=== PATIENT | female | born 1960 | race Hispanic/Latino ===

== ENCOUNTER 2017-04-06 05:24 | Emergency (ER) | payer OTHER ==
[2017-04-06 06:13] LABS: Basophils % (Auto) 0.3 % (0.0-1.8); Eosinophils % (Auto) 2.2 % (0.0-4.3); Hematocrit 38.7 % (30.3-42.9); Hemoglobin 12.6 gm/dl (10.1-14.3); Mean Corpuscular HGB Conc 33 % (30-34); Mean Corpuscular Hemoglobin 29 pg (28-32); Mean Corpuscular Volume 90 fl (79-97); Red Blood Count 4.31 M/mm3 (3.65-5.03); Red Cell Distribution Width 17.7 % (13.2-15.2); White Blood Count 5.4 K/mm3 (4.5-11.0)
[2017-04-06 06:14] LABS: Platelet Count 111 K/mm3 (140-440)
[2017-04-06 06:37] LABS: Alanine Aminotransferase 28 units/L (7-56); Albumin 3.8 g/dL (3.9-5); Albumin/Globulin Ratio 2.4 %; Alkaline Phosphatase 112 units/L (35-129); Anion Gap 17 mmol/L; BUN/Creatinine Ratio 24; Blood Urea Nitrogen 12 mg/dL (7-17); Calcium 8.6 mg/dL (8.4-10.2); Carbon Dioxide 19 mmol/L (22-30); Chloride 115.1 mmol/L (98-107); Glucose 85 mg/dL (65-100); Lipase 22 units/L (13-60); Potassium 4.8 mmol/L (3.6-5.0); Sodium 146 mmol/L (137-145); Total Protein 5.4 g/dL (6.3-8.2)
[2017-04-06 07:54] LABS: Bilirubin,Urine NEG (Negative); Blood,Urine MOD (Negative); Ketones,Urine NEG (Negative); Leukocyte Esterase,Urine TR (Negative); Mucus,Urine FEW /HPF; Nitrite,Urine NEG (Negative); Protein,Urine <15 mg/dL mg/dL (Negative); Urobilinogen,Urine < 2.0 mg/dL (<2.0)
--- NOTE | 2017-04-06 09:37 | Emergency Department Report ---
ED General Adult HPI - General Chief complaint: Abdominal Pain Stated complaint: ABD PAIN; EDEMA BILATERAL FEET Time Seen by Provider: 04/06/17 08:56 Source: patient, RN notes reviewed Mode of arrival: Ambulatory Limitations: No Limitations - History of Present Illness Initial comments: This is a 57-year-old female who is previously unknown to this provider. Patient has a past medical history of emphysema/COPD, gastric bypass, pacemaker placement, hysterectomy, abdominal surgery/hernia repair with mesh. Does not have a local primary care doctor. The patient presents to the ER with multiple complaints. Her first complaint is epigastric and bilateral upper quadrant abdominal pain. This has been present for the past few weeks. It is intermittent, does not radiate distal, increases with palpation and decreases with rest. The patient also complains of shortness of breath, wheezing and coughing. She reports this is consistent with prior episodes of COPD. There is no history of DVT, no recent trips greater than 4 hours, and no recent hospital admissions. The patient also complains of bilateral lower extremity swelling. The swelling is intermittent over the past 2 months. It worsens when she stands up for prolonged period of time, and gets better when she sits down. She reports that the swelling intimately causes pain and redness in her lower extremities. The swelling today is not especially different than when compared to prior over the past 2 months. There is no chest pain. The patient denies irritative obstructive urinary symptoms, and she also describes diarrhea, which she describes as nonbloody, nonbilious, reports recent amoxicillin use for "dental infection." Hasn't had diarrhea since being here in the ER. -: Gradual Location: abdomen, left, right, lower extremity Quality: aching Consistency: intermittent Improves with: rest Associated Symptoms: malaise, shortness of breath. denies: chest pain - Related Data Previous Rx's Medication Instructions Recorded Last Taken Type Albuterol Sulfate [Proair 90 mcg IH Q4HR PRN #2 aer.pow.ba 04/06/17 Unknown Rx Respiclick] Dicyclomine [Bentyl] 10 mg PO QID PRN #20 capsule 04/06/17 Unknown Rx Famotidine [Pepcid] 20 mg PO QDAY #30 tablet 04/06/17 Unknown Rx Ipratropium [place] [Atrovent Hfa] 12.9 gm IH Q4HR #2 hfa.aer.ad 04/06/17 Unknown Rx predniSONE [Deltasone] 40 mg PO QDAY #8 tab 04/06/17 Unknown Rx Allergies Allergy/AdvReac Type Severity Reaction Status Date / Time No Known Allergies Allergy Unverified 04/06/17 05:34 ED Review of Systems ROS: Stated complaint: ABD PAIN; EDEMA BILATERAL FEET Other details as noted in HPI Constitutional: malaise. denies: fever Eyes: denies: vision change ENT: denies: epistaxis Respiratory: cough, shortness of breath, wheezing Cardiovascular: denies: chest pain Gastrointestinal: abdominal pain, diarrhea Musculoskeletal: back pain, arthralgia, myalgia Skin: denies: lesions Neurological: weakness Psychiatric: as per HPI ED Past Medical Hx - Past Medical History Previous Medical History?: No - Surgical History Past Surgical History?: Yes Additional Surgical History: gastric bypass, hip replacement, hysterectomy, hernia repair, - Social History Smoking Status: Current Every Day Smoker - Medications Home Medications: Home Medications Medication Instructions Recorded Confirmed Last Taken Type Albuterol Sulfate [Proair 90 mcg IH Q4HR PRN #2 aer.pow.ba 04/06/17 Unknown Rx Respiclick] Dicyclomine [Bentyl] 10 mg PO QID PRN #20 capsule 04/06/17 Unknown Rx Famotidine [Pepcid] 20 mg PO QDAY #30 tablet 04/06/17 Unknown Rx Ipratropium [place] [Atrovent Hfa] 12.9 gm IH Q4HR #2 hfa.aer.ad 04/06/17 Unknown Rx predniSONE [Deltasone] 40 mg PO QDAY #8 tab 04/06/17 Unknown Rx ED Physical Exam - General Limitations: No Limitations General appearance: alert, in no apparent distress - Head Head exam: Present: atraumatic, normocephalic - Eye Eye exam: Present: normal appearance, EOMI. Absent: nystagmus - ENT ENT exam: Present: normal exam, normal orophraynx, mucous membranes moist, normal external ear exam - Neck Neck exam: Present: normal inspection, full ROM. Absent: tenderness, meningismus - Respiratory Respiratory exam: Present: normal lung sounds bilaterally. Absent: respiratory distress, wheezes, rales, rhonchi, stridor, chest wall tenderness, accessory muscle use, decreased breath sounds, prolonged expiratory - Cardiovascular Cardiovascular Exam: Present: normal rhythm, bradycardia, normal heart sounds. Absent: tachycardia, irregular rhythm, systolic murmur, diastolic murmur, rubs, gallop - GI/Abdominal GI/Abdominal exam: Present: soft, tenderness, normal bowel sounds, other (there is epigastric, bilateral upper quadrant tenderness, there is no right lower quadrant tenderness, mild left lower quadrant tenderness, patient reports having hernia mesh there previously.). Absent: distended, guarding, rebound, rigid, pulsatile mass - Extremities Exam Extremities exam: Present: normal inspection, normal capillary refill, pedal edema, other (there is no palpable cord, there is 1+ pitting edema in the lower extremities.). Absent: calf tenderness - Back Exam Back exam: Present: normal inspection, full ROM. Absent: CVA tenderness (L), muscle spasm, paraspinal tenderness, vertebral tenderness - Neurological Exam Neurological exam: Present: alert, oriented X3, normal gait, other (Extraocular movements intact. Tongue midline. No facial droop. Facial sensation intact to light touch in the V1, V2, V3 distribution bilaterally. 5 and 5 strength in 4 extremities.. Sensation is intact to light touch in 4 extremities.). Absent : motor sensory deficit - Psychiatric Psychiatric exam: Present: normal affect, normal mood - Skin Skin exam: Present: warm, dry, intact, normal color. Absent: rash ED Course Vital Signs 04/06/17 04/06/17 04/06/17 05:28 10:54 12:21 Temperature 98.8 F 97.9 F Pulse Rate 53 L 54 L Pulse Rate [ 44 L Anterior Bilateral Throughout] Respiratory 17 20 Rate Respiratory 18 Rate [Anterior Bilateral Throughout] Blood Pressure 138/66 Blood Pressure 110/60 [Left] O2 Sat by Pulse 96 96 Oximetry 04/06/17 12:23 Temperature Pulse Rate Pulse Rate [ Anterior Bilateral Throughout] Respiratory 20 Rate Respiratory Rate [Anterior Bilateral Throughout] Blood Pressure Blood Pressure [Left] O2 Sat by Pulse 96 Oximetry - Reevaluation(s) Reevaluation #1: 04/06/17 10:01 Differential diagnosis: COPD, pneumonia, hiatal hernia, complication of gastric bypass, urinary tract infection, antibiotic associated diarrhea, DVT, pulmonary embolus, CHF, dependent edema, venous insufficiency Assessment and plan: 57-year-old female with a number of subacute and chronic complaints. She is afebrile, with reassuring vital signs, has a GCS of 15, with an NIH score of 0, is clinically sober, low risk by well's criteria, no pulmonary and lesser DVT risk factors, with a negative d-dimer. The leg swelling is positional, and has been going on for 2 months. Her d-dimer is negative, her legs do not appear to be superinfected, after the aforementioned reasons, I did not see a reason to obtain emergent lower extremity DVT study. It is currently the weekend, and there is no one available in house to perform a vascular ultrasound to exclude DVT. Given that symptoms present for 2 months , patient can have this done as an outpatient and I will order it as such. Abdomen has upper quadrant tenderness, most predominantly in the epigastric region. Patient will be treated symptomatically, CT scan of the abdomen and pelvis will be obtained. She is wheezing incidentally, so she will be given albuterol, Atrovent, steroids, x-ray the chest is pending. EKG is pending. No diarrhea while in the emergency Department, urinalysis is not consistent with UTI. Her diarrhea can be managed expectantly as an outpatient as well. I will withhold systemic anticoagulation as I think the risks outweigh benefits , and I have a very low pre for DVT in the lower extremity. Reevaluation #2: 04/06/17 10:04 Correction to previous: Vascular lab in house, therefore we'll obtain DVT study. Reevaluation #3: 04/06/17 12:07 Resting comfortably. No nausea or vomiting. No diarrhea. DVT study negative. Recent has had a prolonged stay in the department without difficulty or complications. Her wheezing is improved, and she is suitable to follow up with an outpatient primary care doctor. Return precautions are reviewed. ED Medical Decision Making - Lab Data Result diagrams: 04/06/17 05:55 04/06/17 05:55 Vital Signs 04/06/17 05:28 Temperature 98.8 F Pulse Rate 53 L Respiratory 17 Rate Blood Pressure 138/66 O2 Sat by Pulse 96 Oximetry Lab Results 04/06/17 04/06/17 04/06/17 Range/Units 05:55 05:55 09:06 WBC 5.4 (4.5-11.0) K/mm3 RBC 4.31 (3.65-5.03) M/mm3 Hgb 12.6 (10.1-14.3) gm/dl Hct 38.7 (30.3-42.9) % MCV 90 (79-97) fl MCH 29 (28-32) pg MCHC 33 (30-34) % RDW 17.7 H (13.2-15.2) % Plt Count 111 L (140-440) K/mm3 Lymph % (Auto) 36.4 H (13.4-35.0) % Cottle % (Auto) 4.9 (0.0-7.3) % Eos % (Auto) 2.2 (0.0-4.3) % Baso % (Auto) 0.3 (0.0-1.8) % Lymph # 2.0 (1.2-5.4) K/mm3 Cottle # 0.3 (0.0-0.8) K/mm3 Eos # 0.1 (0.0-0.4) K/mm3 Baso # 0.0 (0.0-0.1) K/mm3 Seg Neutrophils % 56.2 (40.0-70.0) % Seg Neutrophils # 3.0 (1.8-7.7) K/mm3 PT 13.3 (12.2-14.9) Sec. INR 0.96 (0.87-1.13) APTT 28.6 (24.2-36.6) Sec. D-Dimer (0-234) ng/mlDDU Sodium 146 H (137-145) mmol/L Potassium 4.8 (3.6-5.0) mmol/L Chloride 115.1 H (98-107) mmol/L Carbon Dioxide 19 L (22-30) mmol/L Anion Gap 17 mmol/L BUN 12 (7-17) mg/dL Creatinine 0.5 L (0.7-1.2) mg/dL Estimated GFR > 60 ml/min BUN/Creatinine Ratio 24 % Glucose 85 (65-100) mg/dL Calcium 8.6 (8.4-10.2) mg/dL Total Bilirubin 0.20 (0.1-1.2) mg/dL AST 33 (5-40) units/L ALT 28 (7-56) units/L Alkaline Phosphatase 112 (35-129) units/L NT-Pro-B Natriuret Pep (0-900) pg/mL Total Protein 5.4 L (6.3-8.2) g/dL Albumin 3.8 L (3.9-5) g/dL Albumin/Globulin Ratio 2.4 % Lipase 22 (13-60) units/L Urine Color (Yellow) Urine Turbidity (Clear) Urine pH (5.0-7.0) Ur Specific [place] (1.003-1.030) Urine Protein (Negative) mg/dL Urine Glucose (UA) (Negative) mg/dL Urine Ketones (Negative) mg/dL Urine Blood (Negative) Urine Nitrite (Negative) Urine Bilirubin (Negative) Urine Urobilinogen (<2.0) mg/dL Ur Leukocyte Esterase (Negative) Urine WBC (Auto) (0.0-6.0) /HPF Urine RBC (Auto) (0.0-6.0) /HPF U Epithel Cells (Auto) (0-13.0) /HPF Urine Mucus /HPF 04/06/17 04/06/17 04/06/17 Range/Units 09:06 09:09 Unknown WBC (4.5-11.0) K/mm3 RBC (3.65-5.03) M/mm3 Hgb (10.1-14.3) gm/dl Hct (30.3-42.9) % MCV (79-97) fl MCH (28-32) pg MCHC (30-34) % RDW (13.2-15.2) % Plt Count (140-440) K/mm3 Lymph % (Auto) (13.4-35.0) % Cottle % (Auto) (0.0-7.3) % Eos % (Auto) (0.0-4.3) % Baso % (Auto) (0.0-1.8) % Lymph # (1.2-5.4) K/mm3 Cottle # (0.0-0.8) K/mm3 Eos # (0.0-0.4) K/mm3 Baso # (0.0-0.1) K/mm3 Seg Neutrophils % (40.0-70.0) % Seg Neutrophils # (1.8-7.7) K/mm3 PT (12.2-14.9) Sec. INR (0.87-1.13) APTT (24.2-36.6) Sec. D-Dimer 160.8 (0-234) ng/mlDDU Sodium (137-145) mmol/L Potassium (3.6-5.0) mmol/L Chloride (98-107) mmol/L Carbon Dioxide (22-30) mmol/L Anion Gap mmol/L BUN (7-17) mg/dL Creatinine (0.7-1.2) mg/dL Estimated GFR ml/min BUN/Creatinine Ratio % Glucose (65-100) mg/dL Calcium (8.4-10.2) mg/dL Total Bilirubin (0.1-1.2) mg/dL AST (5-40) units/L ALT (7-56) units/L Alkaline Phosphatase (35-129) units/L NT-Pro-B Natriuret Pep 196.9 (0-900) pg/mL Total Protein (6.3-8.2) g/dL Albumin (3.9-5) g/dL Albumin/Globulin Ratio % Lipase (13-60) units/L Urine Color Yellow (Yellow) Urine Turbidity Clear (Clear) Urine pH 6.0 (5.0-7.0) Ur Specific [place] 1.013 (1.003-1.030) Urine Protein <15 mg/dl (Negative) mg/dL Urine Glucose (UA) Neg (Negative) mg/dL Urine Ketones Neg (Negative) mg/dL Urine Blood Mod (Negative) Urine Nitrite Neg (Negative) Urine Bilirubin Neg (Negative) Urine Urobilinogen < 2.0 (<2.0) mg/dL Ur Leukocyte Esterase Tr (Negative) Urine WBC (Auto) 4.0 (0.0-6.0) /HPF Urine RBC (Auto) 19.0 (0.0-6.0) /HPF U Epithel Cells (Auto) < 1.0 (0-13.0) /HPF Urine Mucus Few /HPF - EKG Data -: EKG Interpreted by Me Rate: bradycardia - EKG Data When compared to previous EKG there are: previous EKG unavailable 04/06/17 12:23 Sinus, bradycardia, 54 beats per minute, low voltage, not morphologically consistent with STEMI, no prior for comparison, normal intervals. - Radiology Data Radiology results: report reviewed, image reviewed interpreted by me: X-ray the chest is negative for acute disease CT scan of the abdomen and pelvis negative for acute disease, postsurgical changes noted, x-ray of the chest is negative [facility] BEBO,MARTHA PONCE Female : 1960 [facility]# [id number] 04/06/17 11:48 - Radiology Dept. Note by STEPHANY KOENIG [facility] Num: [id number] : 1960 Patient Age: 57 VASCULAR LAB PRELIMINARY REPORT BLE VENOUS DOPPLER COMPLETED NO EVIDENCE OF DVT/SVT NOTED IN VESSELS/SEGMENTS VISUALIZED Initialized on 04/06/17 11:48 - END OF NOTE Critical care attestation.: If time is entered above; I have spent that time in minutes in the direct care of this critically ill patient, excluding procedure time. ED Disposition Clinical Impression: COPD exacerbation, Dependent edema, Abdominal pain Disposition: TO HOME OR SELFCARE Is pt being admited?: No Does the pt Need Aspirin: No Condition: Stable Instructions: Chronic Obstructive Pulmonary Disease (ED), Abdominal Pain (ED) Additional Instructions: Take the pain medication, nausea medication, breathing medication as needed/ directed. Follow up with the primary care doctor within the next month. Alternatively, further wheezing/COPD, patient may follow up with the listed lung specialist within the next month. Lower extremity swelling most likely coming from venous insufficiency, patient can purchase compression stockings [id number] to assist with this. Rest and avoid heavy lifting, and avoid strenuous physical activity, diet as tolerated, return to the ER right away with new pain, worsened pain, migration of pain, fevers, chills, lethargy, irritability, projectile vomiting, change in mental status, inability to tolerate liquid feeds, confusion. Prescriptions: Albuterol Sulfate [Proair Respiclick] 90 mcg IH Q4HR PRN #2 aer.pow.ba PRN Reason: Wheezing Dicyclomine [Bentyl] 10 mg PO QID PRN #20 capsule PRN Reason: Pain Famotidine [Pepcid] 20 mg PO QDAY #30 tablet Ipratropium [place] [Atrovent Hfa] 12.9 gm IH Q4HR #2 hfa.aer.ad predniSONE [Deltasone] 40 mg PO QDAY #8 tab Referrals: PRIMARY CARE, [Primary Care Provider] - 3-5 Days KAYLEN WYNNE MD [Staff Physician] - 3-5 Days JARROD MATHEWS MD [Staff Physician] - 3-5 Days [facility] [Provider Group] - 3-5 Days
[2017-04-06 09:38] LABS: INR 0.96 (0.87-1.13)
[2017-04-06 09:39] LABS: Partial Thromboplastin Time 28.6 Sec. (24.2-36.6)
[2017-04-06] MEDS: ALUM-MAG HYDROX-SIMETH 200-200-20MG/5ML PO ONE (10:24)
[2017-04-06] MEDS: BENTYL PO ONE (10:24)
[2017-04-06] MEDS: MAGNESIUM SULFATE 2GM/50ML 2 GM/50 ML BAG IV ONE (10:24)
[2017-04-06] MEDS: CARAFATE PO ONE (10:24)
[2017-04-06] MEDS: PEPCID IV ONE (10:25)
--- NOTE | 2017-04-06 10:28 | XRay Report ---
ROUTINE CHEST, TWO VIEWS: HISTORY: Edema, evaluate for CHF. The trachea, heart, mediastinal contour, lung kuo and bony thorax are unremarkable. IMPRESSION: Unremarkable chest x-ray.
[2017-04-06] MEDS: PROVENTIL IH ONE (10:53)
[2017-04-06] MEDS: ATROVENT IH ONE (10:53)
--- NOTE | 2017-04-06 11:03 | Cat Scan Report ---
CT SCAN OF THE ABDOMEN AND PELVIS WITH CONTRAST: HISTORY: Abdominal pain, hernia. TECHNIQUE: Helical CT in 1.25mm intervals following IV contrast. Sagittal and coronal reconstructions. FINDINGS: No comparison. The liver is normal in size and contour. A 3.2 cm cavernous hemangioma is noted in the left hepatic lobe. No suspicious liver mass. No gallstones or biliary dilatation are noted. The spleen and pancreas demonstrate a normal size and attenuation with no evidence of abnormal mass. The kidneys are normal in size and position with no evidence of hydronephrosis or mass. The adrenal glands are normal. The bowel loops are within normal limits given no oral contrast was administered. Normal appendix. The abdominal aorta is normal. Surgical changes are noted in the proximal stomach, correlate with history. There is also been previous ventral wall hernia repair. No large recurrent hernia is visualized. Hysterectomy changes are suspected. There is no evidence of peritoneal air or fluid. There is no evidence of any abnormal masses or fluid collections within the pelvis. No adenopathy is identified. The bladder is normal. IMPRESSION: No acute abdominal process identified. Surgical changes as described. Cavernous hemangioma of the liver.
[2017-04-06] MEDS: NACL ONE (11:52)
[2017-04-06 12:22] VITALS: BP 110/60
== END 2017-04-06 12:31 | disposition home or self-care (01) ==
LOC: ED 05:24
DX: J44.1 Chronic obstructive pulmonary disease with (acute) exacerbation (principal); R10.13 Epigastric pain; R60.9 Edema, unspecified; F17.200 Nicotine dependence, unspecified, uncomplicated
CPT/HCPCS: 36415; 71020; 74177; 80053; 81001; 83690; 83880; 85025; 85379; 85610; 85730; 93005; 93010; 93970; 94644; 96365; 96375; 99285; J2930; J3475; Q9967

== ENCOUNTER 2017-05-13 17:32 | Emergency (ER) | payer OTHER ==
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
[2017-05-13] MEDS ORDERED: TYLENOL PO ONE (19:26)
[2017-05-13] MEDS ORDERED: DUONEB *Not for PRN Use IH ONE ×2 (19:26→20:25)
[2017-05-13] MEDS ORDERED: DELTASONE PO ONE (19:27)
[2017-05-13] MEDS ORDERED: PROVENTIL IH ONE (19:29)
[2017-05-13 19:50] VITALS: BP 125/71
[2017-05-13] MEDS ORDERED: ZITHROMAX PO ONE (20:16)
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
--- NOTE | 2017-05-13 21:23 | XRay Report ---
FINAL REPORT EXAM: XR CHEST ROUTINE 2V HISTORY: wheezing and rhonchi TECHNIQUE: Two view chest PA and lateral PRIORS: None. FINDINGS: Cardiac and mediastinal contours are unremarkable. No focal pulmonary infiltrate is identified. No pleural fluid collection seen. Pulmonary vasculature is unremarkable. IMPRESSION: Negative two-view chest
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
== END 2017-05-13 22:30 | disposition home or self-care (01) ==
LOC: ED 17:32
DX: J44.1 Chronic obstructive pulmonary disease with (acute) exacerbation (principal); M54.2 Cervicalgia; M54.9 Dorsalgia, unspecified; F17.200 Nicotine dependence, unspecified, uncomplicated; V49.49XA Driver injured in collision with other motor vehicles in traffic accident, initial encounter; Y93.89 Activity, other specified; Y92.89 Other specified places as the place of occurrence of the external cause; Y99.8 Other external cause status
CPT/HCPCS: 70450; 71020; 72125; 72128; 72131; 94640; 99284; J7512

== ENCOUNTER 2017-07-07 13:36 | Outpatient (CLI) | payer OTHER ==
[2017-07-07] MEDS ORDERED: PROVENTIL IH ONE (14:19)
== END 2017-07-07 13:37 | disposition home or self-care (01) ==
LOC: PF 13:36
PROVIDERS: ATTEND Internal Medicine
DX: J44.9 Chronic obstructive pulmonary disease, unspecified (principal); G56.00 Carpal tunnel syndrome, unspecified upper limb; F32.9 Major depressive disorder, single episode, unspecified; F41.9 Anxiety disorder, unspecified; K46.9 Unspecified abdominal hernia without obstruction or gangrene; M81.0 Age-related osteoporosis without current pathological fracture; G89.29 Other chronic pain; M54.9 Dorsalgia, unspecified; M79.604 Pain in right leg; M79.605 Pain in left leg
CPT/HCPCS: 94060; 94640

== ENCOUNTER 2018-01-26 10:51 | Emergency (ER) | payer SELFPAY ==
--- NOTE | 2018-01-26 12:47 | Emergency Department Report ---
Blank Doc - Documentation Documentation: Patient is a 57-year-old female is presenting with left upper quadrant discomfort for the past week. Patient also has noticed some dark black stools for the past 4 days. Patient states that the pain is aching crampy pain and left upper extremity does not radiate. Patient does take Creon for history of pancreatitis. Patient removed to treatment room will have a rectal exam done and labs performed be reassessed.
[2018-01-26 13:38] LABS: Basophils % (Auto) 0.3 % (0.0-1.8); Eosinophils # (Auto) 0.1 K/mm3 (0.0-0.4); Hematocrit 38.6 % (30.3-42.9); Lymphocytes % (Auto) 35.4 % (13.4-35.0); Mean Corpuscular HGB Conc 34 % (30-34); Mean Corpuscular Hemoglobin 31 pg (28-32); Mean Corpuscular Volume 93 fl (79-97); Monocytes # (Auto) 0.3 K/mm3 (0.0-0.8); Monocytes % (Auto) 5.8 % (0.0-7.3); Platelet Count 140 K/mm3 (140-440); Red Blood Count 4.16 M/mm3 (3.65-5.03); Red Cell Distribution Width 15.5 % (13.2-15.2)
[2018-01-26 13:48] LABS: INR 0.91 (0.87-1.13)
[2018-01-26 13:49] LABS: Partial Thromboplastin Time 28.5 Sec. (24.2-36.6)
[2018-01-26 13:52] LABS: BUN/Creatinine Ratio 38; Blood Urea Nitrogen 15 mg/dL (7-17); Hemolysis Index 3
[2018-01-26] MEDS ORDERED: NACL 0.9% 1000 ML 1,000 ML IV ONE (14:15)
--- NOTE | 2018-01-26 14:15 | Emergency Department Report ---
ED Abdominal Pain HPI - General Chief Complaint: Abdominal Pain Stated Complaint: STOMACH PAIN/BLOODY STOOL Time Seen by Provider: 01/26/18 12:40 Source: patient Mode of arrival: Ambulatory Limitations: No Limitations - History of Present Illness Initial Comments: This is a 57-year-old female nontoxic, well nourished in appearance, no acute signs of distress presents to the ED with c/o of aucte on chronic left-sided abdominal pain. Patient stated that she developed dark colored stool. Patient also stated she needs a [employer] worker for medication refill for Creon. PAtient stated he follows up with Dr. Swenson from [facility] and had normal colonoscopy. Patient stated has "pancreas issues". Patient denies any nausea or vomiting. Patient describes abdominal pain as cramping and aching with level of 3/10. Patient denies chest pain, short of breath, fever, chills, headache, stiff neck, numbness or tingling. Patient denies any diarrhea or constipation. Patient denies any vaginal bleeding or discharge. Patient denies any recent travels. Patient denies any allergies. Past medical history includes COPD, bronchitis, pancreatic problems, gastric bypass. MD Complaint: abdominal pain Location: LUQ Radiation: none Migration to: no migration Severity: mild Severity scale (0 -10): 3 Quality: cramping, aching Consistency: intermittent Improves With: nothing Worsens With: nothing Associated Symptoms: denies: nausea, vomiting, diarrhea, fever, chills, constipation, dysuria, hematemesis, hematochezia, melena, hematuria, anorexia, syncope - Related Data Previous Rx's Medication Instructions Recorded Last Taken Type Albuterol Sulfate [Proair 90 mcg IH Q4HR PRN #2 aer.pow.ba 04/06/17 Unknown Rx Respiclick] Dicyclomine [Bentyl] 10 mg PO QID PRN #20 capsule 04/06/17 Unknown Rx Famotidine [Pepcid] 20 mg PO QDAY #30 tablet 04/06/17 Unknown Rx Ipratropium [place] [Atrovent Hfa] 12.9 gm IH Q4HR #2 hfa.aer.ad 04/06/17 Unknown Rx predniSONE [Deltasone] 40 mg PO QDAY #8 tab 04/06/17 Unknown Rx Albuterol Sulfate [Ventolin Hfa] 1 puff IH Q4H PRN #1 hfa.aer.ad 05/13/17 Unknown Rx Azithromycin [Zithromax Z-DUSTY] 250 mg PO QDAY #4 tablet 05/13/17 Unknown Rx Cyclobenzaprine [Flexeril] 10 mg PO TID PRN #10 tablet 05/13/17 Unknown Rx Naproxen 500 mg PO BID PRN #20 tablet 05/13/17 Unknown Rx predniSONE [Deltasone] 40 mg PO QDAY #10 tablet 05/13/17 Unknown Rx Acetaminophen/Codeine [Tylenol 1 tab PO Q6H PRN #12 tab 01/26/18 Unknown Rx /Codeine # 3 tab] Allergies Allergy/AdvReac Type Severity Reaction Status Date / Time No Known Allergies Allergy Unverified 01/26/18 11:17 ED Review of Systems ROS: Stated complaint: STOMACH PAIN/BLOODY STOOL Other details as noted in HPI Constitutional: denies: chills, fever Eyes: denies: eye pain, eye discharge, vision change ENT: denies: ear pain, throat pain Respiratory: denies: cough, shortness of breath, wheezing Cardiovascular: denies: chest pain, palpitations Endocrine: no symptoms reported Gastrointestinal: abdominal pain. denies: nausea, vomiting, diarrhea, constipation, hematemesis Genitourinary: denies: urgency, dysuria, discharge Musculoskeletal: denies: back pain, joint swelling, arthralgia Skin: denies: rash, lesions Neurological: denies: headache, weakness, paresthesias Psychiatric: denies: anxiety, depression Hematological/Lymphatic: denies: easy bleeding, easy bruising ED Past Medical Hx - Past Medical History Previous Medical History?: Yes Hx COPD: Yes Additional medical history: bronchitis. Pancreatic problems - Surgical History Past Surgical History?: Yes Additional Surgical History: gastric bypass, hip replacement, hysterectomy, hernia repair, - Social History Smoking Status: Current Every Day Smoker Substance Use Type: None - Medications Home Medications: Home Medications Medication Instructions Recorded Confirmed Last Taken Type Albuterol Sulfate [Proair 90 mcg IH Q4HR PRN #2 aer.pow.ba 04/06/17 Unknown Rx Respiclick] Dicyclomine [Bentyl] 10 mg PO QID PRN #20 capsule 04/06/17 Unknown Rx Famotidine [Pepcid] 20 mg PO QDAY #30 tablet 04/06/17 Unknown Rx Ipratropium [place] [Atrovent Hfa] 12.9 gm IH Q4HR #2 hfa.aer.ad 04/06/17 Unknown Rx predniSONE [Deltasone] 40 mg PO QDAY #8 tab 04/06/17 Unknown Rx Albuterol Sulfate [Ventolin Hfa] 1 puff IH Q4H PRN #1 hfa.aer.ad 05/13/17 Unknown Rx Azithromycin [Zithromax Z-DUSTY] 250 mg PO QDAY #4 tablet 05/13/17 Unknown Rx Cyclobenzaprine [Flexeril] 10 mg PO TID PRN #10 tablet 05/13/17 Unknown Rx Naproxen 500 mg PO BID PRN #20 tablet 05/13/17 Unknown Rx predniSONE [Deltasone] 40 mg PO QDAY #10 tablet 05/13/17 Unknown Rx Acetaminophen/Codeine [Tylenol 1 tab PO Q6H PRN #12 tab 01/26/18 Unknown Rx /Codeine # 3 tab] ED Physical Exam - General Limitations: No Limitations General appearance: alert, in no apparent distress - Head Head exam: Present: atraumatic, normocephalic - Eye Eye exam: Present: normal appearance Pupils: Present: normal accommodation - ENT ENT exam: Present: normal exam, mucous membranes moist - Neck Neck exam: Present: normal inspection, full ROM. Absent: tenderness, meningismus, lymphadenopathy - Respiratory Respiratory exam: Present: normal lung sounds bilaterally. Absent: respiratory distress, wheezes, rales, rhonchi, stridor, chest wall tenderness, accessory muscle use, decreased breath sounds - Cardiovascular Cardiovascular Exam: Present: regular rate, normal rhythm. Absent: systolic murmur, diastolic murmur, rubs, gallop - GI/Abdominal GI/Abdominal exam: Present: soft, tenderness (LUQ), normal bowel sounds. Absent : distended, guarding, rebound, rigid, diminished bowel sounds - Expanded GI/Abdominal Exam Expanded GI/Abdominal exam: Absent: psoas sign, obturator sign, heel tap sign, Martinez's sign, Rovsing's sign, tenderness at [place], ascites - Rectal Rectal exam: Present: normal inspection, normal rectal tone, heme (+) stool, other (brown colored stool). Absent: decreased rectal tone, heme (-) stool, black stool, bloody stool, fecal impaction, hemorrhoids, mass, tenderness - Extremities Exam Extremities exam: Present: normal inspection, full ROM, normal capillary refill. Absent: tenderness - Back Exam Back exam: Present: normal inspection, full ROM. Absent: tenderness, CVA tenderness (R), CVA tenderness (L), muscle spasm, paraspinal tenderness, vertebral tenderness, rash noted - Neurological Exam Neurological exam: Present: alert, oriented X3, normal gait - Psychiatric Psychiatric exam: Present: normal affect, normal mood - Skin Skin exam: Present: warm, dry, intact, normal color. Absent: rash ED Course Vital Signs 01/26/18 01/26/18 01/26/18 11:10 14:37 14:47 Temperature 97.8 F Pulse Rate 44 L Respiratory 16 16 16 Rate Blood Pressure 117/63 O2 Sat by Pulse 97 Oximetry - Reevaluation(s) Reevaluation #1: 01/26/18 15:28 Patient is speaking in full sentences with no signs of distress noted. - Consultations Consultation #1: 01/26/18 15:28 Patient has been consulted with Terry Thomas About patient history, physical exam, and labs/CT scan and examined and screened patient and agrees to ED plan of care. Consultation #2: 01/26/18 15:29 Patient has been consulted with Dr. Burgess ([facility]) about patient history, physical exam, and labs and stated to CT scan with contrast and if normal patient can be discharged with follow-up outpatient. ED Medical Decision Making - Lab Data Result diagrams: 01/26/18 13:05 01/26/18 13:05 - Medical Decision Making This is a 57-year-old female that presents with abdominal pain and positive hemoccult blood. Patient is stable and was examined by me and Dr. Hoff. Patient was consulted with Dr. Burgess and stated to discharge with follow-up. There is slight abdominal tenderness of LUQ. Negative signs of symptoms of appendicitis. + hemooccult blood. Labs obtained. UA obtained. CT with contrast of abdomen obtained and dictated by the radiologist. Patient is notified of the report with no questions noted by the patient. Vital signs are stable prior to discharge. PAtient received Morphine in the ED which patient stated symptoms has resovled and subsided. A by mouth challenge has been obtained and patient tolerated well with no nausea vomiting. Patient was notified of strict precatuions of appendictis symptoms and to return to the ED if symptoms occurs as soon as possible. Patient was also instructed to Follow-up with a primary care doctor in 3-5 days or if symptoms worsen and continue return to emergency room as soon as possible. At time of discharge, the patient does not seem toxic or ill in appearance. No acute signs of distress noted. Patient agrees to discharge treatment plan of care. No further questions noted by the patient. 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 Patient is out of her insurance and medication is expensive. Critical care attestation.: If time is entered above; I have spent that time in minutes in the direct care of this critically ill patient, excluding procedure time. ED Disposition Clinical Impression: Positive occult stool blood test Abdominal pain Qualifiers: Abdominal location: left upper quadrant Qualified Code(s): R10.12 - Left upper quadrant pain Disposition: - TO HOME OR SELFCARE Is pt being admited?: No Does the pt Need Aspirin: No Condition: Stable Instructions: Acetaminophen/Codeine (By mouth), Abdominal Pain (ED) Additional Instructions: Follow-up with a primary care/gastroenterolgiest doctor in 3-5 days or if symptoms worsen and continue return to emergency room as soon as possible. Do not operate any machinery after discharge due to possible drowsiness of morphine. Do not operate any machinery while taking Tylenol with codeine as this may cause drowsiness. Prescriptions: Acetaminophen/Codeine [Tylenol /Codeine # 3 tab] 1 tab PO Q6H PRN #12 tab PRN Reason: Pain , Severe (7-10) Referrals: JULIA BROWN MD [Primary Care Provider] - 3-5 Days SESAR COSTA MD [Staff Physician] - 3-5 Days [facility] [Provider Group] - 3-5 Days [facility] [Outside] - 3-5 Days
[2018-01-26] MEDS ORDERED: MORPHINE IV ONE (14:36)
[2018-01-26] MEDS ORDERED: ZOFRAN IV ONE (14:36)
--- NOTE | 2018-01-26 15:30 | Cat Scan Report ---
CT ABDOMEN PELVIS WITH CONTRAST: HISTORY: Abdominal pain, dark stools, rule out GI bleed. COMPARISON: 04/06/17. TECHNIQUE: Helical CT in 1.25mm intervals following IV contrast. Sagittal and coronal reconstructions. FINDINGS: Lung bases: Normal. Liver: Within normal limits. 3.3 cm cavernous hemangioma is noted in the left hepatic lobe. Biliary system: Normal. Pancreas: Normal. Spleen: Normal. Kidneys/ureters/bladder: Normal. Adrenal glands: Normal. Aorta: Normal. Intestines: No oral contrast was administered. There is no evidence for bowel obstruction, mass or focal inflammation. There are several diverticula throughout the length of the colon. No site of bleeding is appreciated on CT with contrast. Suture line in the mid small bowel is noted, correlate with history. Appendix: Normal. Pelvic viscera: Normal. Ascites: None. Adenopathy: None. Musculoskeletal: Intact. Previous ventral wall hernia repair is identified which appears intact. IMPRESSION: No acute abdominal process is identified. No site of GI bleeding on CT with contrast is detected. Diverticulosis of the colon. Surgical changes as described.
[2018-01-26 15:55] VITALS: BP 122/64
== END 2018-01-26 15:54 | disposition home or self-care (01) ==
LOC: ED 10:51
DX: R10.32 Left lower quadrant pain (principal); R19.5 Other fecal abnormalities; J44.9 Chronic obstructive pulmonary disease, unspecified; Z90.710 Acquired absence of both cervix and uterus; F17.200 Nicotine dependence, unspecified, uncomplicated; Z79.899 Other long term (current) drug therapy
CPT/HCPCS: 36415; 74177; 80048; 83690; 85025; 85610; 85730; 96374; 96375; 99284; J2270; J2405; J7030; Q9967

== ENCOUNTER 2019-02-16 15:45 | Emergency (ER) | payer OTHER ==
--- NOTE | 2019-02-16 16:02 | Emergency Department Report ---
Blank Doc - Documentation Documentation: This is a 58-year-old female that presents with left sided neck pain with radi ation to left head area. Denies any injuries. This initial assessment/diagnostic orders/clinical plan/treatment(s) is/are subject to change based on patient's health status, clinical progression and re- assessment by fellow clinical providers in the ED. Further treatment and workup at subsequent clinical providers discretion. Patient/guardians urged not to elope from the ED as their condition may be serious if not clinically assessed and managed. Initial orders include: 1- Patient sent to [facility] for further evaluation and treatment
--- NOTE | 2019-02-16 19:55 | Emergency Department Report ---
ED Neck Pain HPI Chief Complaint: Neck Pain/Injury Stated Complaint: LT ARM INJURY/ NECK PAIN Time Seen by Provider: 02/16/19 16:01 Duration: 2 months Neck Pain Location: Lateral Neck Severity: moderate Mechanism: Unsure Symptoms: Yes Radiation to Left Upper Ext, Yes Radiation to Right Upper Ext, No Pain with Movement, No Numbness, No Weakness, No Previous History Other History: 58-year-old female presents to the emergency room complaining of neck pain that radiates to her back of her head that started a couple months ago. Patient states that she has been followed by orthopedic provider and they recommend for her to have a MRI. Patient comes in today requesting MRI. Patient also complains of a left forearm skin tear after ca rrying trays yesterday. Patient does have a past medical history of gastric bypass hip replacement hernia repair pancreatic problems bronchitis COPD depression. Denies any recent trauma. ED Review of Systems ROS: Stated complaint: LT ARM INJURY/ NECK PAIN Other details as noted in HPI Comment: All other systems reviewed and negative ED Past Medical Hx - Past Medical History Previous Medical History?: Yes Hx COPD: Yes Additional medical history: bronchitis. Pancreatic problems - Surgical History Past Surgical History?: Yes Additional Surgical History: gastric bypass, hip replacement, hysterectomy, hernia repair, - Social History Smoking Status: Current Every Day Smoker Substance Use Type: None - Medications Home Medications: Home Medications Medication Instructions Recorded Confirmed Last Taken Type Albuterol Sulfate [Proair 90 mcg IH Q4HR PRN #2 [id number] 04/06/17 Unknown Rx Respiclick] Dicyclomine [Bentyl] 10 mg PO QID PRN #20 capsule 04/06/17 Unknown Rx Famotidine [Pepcid] 20 mg PO QDAY #30 tablet 04/06/17 Unknown Rx Ipratropium De Beque [Atrovent Hfa] 12.9 gm IH Q4HR #2 hfa.aer.ad 04/06/17 Unknown Rx predniSONE [Deltasone] 40 mg PO QDAY #8 tab 04/06/17 Unknown Rx Albuterol Sulfate [Ventolin Hfa] 1 puff IH Q4H PRN #1 hfa.aer.ad 05/13/17 Unknown Rx Azithromycin [Zithromax Z-DUSTY] 250 mg PO QDAY #4 tablet 05/13/17 Unknown Rx Cyclobenzaprine [Flexeril] 10 mg PO TID PRN #10 tablet 05/13/17 Unknown Rx Naproxen 500 mg PO BID PRN #20 tablet 05/13/17 Unknown Rx predniSONE [Deltasone] 40 mg PO QDAY #10 tablet 05/13/17 Unknown Rx Acetaminophen/Codeine [Tylenol 1 tab PO Q6H PRN #12 tab 01/26/18 Unknown Rx /Codeine # 3 tab] Acetaminophen [Arthritis Pain 650 mg PO Q8H PRN #21 tablet.er 02/16/19 Unknown Rx Reliever] Neck Pain Exam - Exam General: Vital signs noted. No distress. Alert and acting appropriately. HEENT: No Facial Pain, No Scalp Tenderness, No Contusion, No Abrasion, No Laceration Neck Pain: Yes Right Trapezius Tenderness, Yes Left Trapezius Tenderness, No Midline Tenderness, No Right Paraspinal Tenderness, No Left Paraspinal Te nderness, No Pain with Rotation Right, No Pain with Rotation Left, No Pain with Extension, No Pain with Flexion, No pain with R Lateral Flexion, No Pain with L Lateral Flexion Chest: Yes Clear Lung Sounds, No Pain with Respirations Heart: Yes Regular, No Murmur Back: No Thoracic Tenderness, No Lumbar Tenderness Neuro: No Numbness, No Weakness, No Normal Reflexes, No Radicular Deficits Exam: Left forearm skin tear with tenderness and erythematous. ED Course Vital Signs 02/16/19 16:01 Temperature 98.4 F Pulse Rate 53 L Respiratory 18 Rate Blood Pressure 100/56 O2 Sat by Pulse 94 Oximetry ED Medical Decision Making - Medical Decision Making 58-year-old female presents to the emergency room complaining of neck pain that radiates to her back of her head that started a couple months ago. Patient states that she has been followed by orthopedic provider and they recommend for her to have a MRI. Patient comes in today requesting MRI. Joi covarrubias also complains of a left forearm skin tear after carrying trays yesterday. Patient does have a past medical history of gastric bypass hip replacement hernia repair pancreatic problems bronchitis COPD depression. Denies any recent trauma. Discussed with patient that she needs to follow back up with her orthopedic provider to have a scheduled outpatient MRI. I also discussed the patient she can keep her left forearm skin tear cleaned with soap and water she is able to apply [id number] antibiotic cream keep wound clean and dry and follow-up with her primary care provider but she reports the [facility]. Critical care attestation.: If time is entered above; I have spent that time in minutes in the direct care of this critically ill patient, excluding procedure time. ED Disposition Clinical Impression: Cervical neuropathic pain, Skin tear Disposition: TO HOME OR SELFCARE Is pt being admited?: No Does the pt Need Aspirin: No Condition: Stable Additional Instructions: Take [id number] Tylenol and/or Motrin as needed for pain management. Follow up with orthopedic provider and primary care provider for continued follow-up. Prescriptions: Acetaminophen [Arthritis Pain Reliever] 650 mg PO Q8H PRN #21 tablet.er PRN Reason: Pain , Severe (7-10) Referrals: ELDA BYRD MD [Primary Care Provider] - 3-5 Days
[2019-02-16 20:20] VITALS: BP 104/60
== END 2019-02-16 20:19 | disposition home or self-care (01) ==
LOC: ED 15:45
DX: S51.812A Laceration without foreign body of left forearm, initial encounter (principal); M54.12 Radiculopathy, cervical region; J44.9 Chronic obstructive pulmonary disease, unspecified; F17.200 Nicotine dependence, unspecified, uncomplicated; X58.XXXA Exposure to other specified factors, initial encounter; Y93.89 Activity, other specified; Y92.89 Other specified places as the place of occurrence of the external cause; Y99.8 Other external cause status